=== PATIENT | female | born 1965 | race Caucasian/White ===

== ENCOUNTER 2017-03-30 19:30 | Emergency (ER) | payer OTHER ==
[2017-03-30 19:35] VITALS: BP 147/79; PULSE 98; RESP 16; TEMP 98.1; O2SAT 100
--- NOTE | 2017-03-30 19:59 | ED PDOC ---
Lower Extremity Pain/Injury Time Seen by Provider: 03/30/17 19:30 Chief Complaint (Nursing): Lower Extremity Problem/Injury Chief Complaint (Provider): Left foot pain History Per: Patient History/Exam Limitations: no limitations Onset/Duration Of Symptoms: Days (3) Current Symptoms Are (Timing): Still Present Severity: Moderate Additional History Per: Patient Additional Complaint(s): The pt is a 51yo female with no pertinent PMHx, presents to the ED for evaluation of left foot pain for the past 3 days. Pt reports she was walking and missed a step and believes it may be the cause of the pain. She denies any falls, trauma or head injury. Pt additionally reports the pain sometimes shoots up her left leg. She denies taking any medication for her pain. She offers no other medical complaints. - Ankle/Foot Description Of Injury: Other (missed step) Currently Unable To: Bear Weight Past Medical History Reviewed: Historical Data, Nursing Documentation, Vital Signs Vital Signs: Last Vital Signs Temp 98.1 F 03/30/17 19:33 Pulse 98 H 03/30/17 19:33 Resp 16 03/30/17 19:33 BP 147/79 03/30/17 19:33 Pulse Ox 100 03/30/17 19:33 - Medical History PMH: No Chronic Diseases - Surgical History Surgical History: No Surg Hx - Family History Family History: States: Unknown Family Hx - Living Arrangements Living Arrangements: With Family - Home Medications Home Medications: Ambulatory Orders Medication Instructions Recorded Naproxen [Naprosyn Tab] 1 tab PO Q8 PRN #21 tab 03/30/17 - Allergies Allergies/Adverse Reactions: Allergies Allergy/AdvReac Type Severity Reaction Status Date / Time No Known Allergies Allergy Verified 03/30/17 19:33 Review of Systems ROS Statement: Except As Marked, All Systems Reviewed And Found Negative Musculoskeletal: Positive for: Foot Pain (left) Physical Exam - Reviewed Nursing Documentation Reviewed: Yes Vital Signs Reviewed: Yes - Physical Exam Appears: Positive for: Well, Non-toxic, No Acute Distress Head Exam: Positive for: ATRAUMATIC, NORMAL INSPECTION, NORMOCEPHALIC Skin: Positive for: Normal Color Neck: Positive for: Normal Cardiovascular/Chest: Positive for: Regular Rate, Rhythm Respiratory: Negative for: Respiratory Distress Pulses-Dorsalis Pedis (L): 2+ Pulses-Dorsalis Pedis (R): 2+ Pulses-Post. Tibialis (L): 2+ Pulses-Post. Tibialis (R): 2+ Extremity: Positive for: Tenderness (posterior malleolar region b/l) Neurologic/Psych: Positive for: Alert, Oriented - ECG O2 Sat by Pulse Oximetry: 100 (RA) Pulse Ox Interpretation: Normal - Progress ED Course And Treament: XRY OF ANKLE: NO ACUTE FX PLACED IN AIR-CAST AND HAS CRUTCHES TORADOL 30MG IM Medical Decision Making Medical Decision Making: Time: 1951 Impression: Left foot pain Plan: -- XR Left foot -- Toradol 30 mg IM --Reassess Scribe Attestation: All records were documented by Suzanne Ramírez, acting as a Scribe for KRISTA Anders. Provider Scribe Attestation: All medical record entries made by the Scribe were at my direction and personally dictated by me. I have reviewed the chart and agree that the record accurately reflects my personal performance of the history, physical exam, medical decision making, and the department course for this patient. I have also personally directed, reviewed, and agree with the discharge instructions and disposition. Disposition - Clinical Impression Clinical Impression: Ankle injury - Patient ED Disposition Is Patient to be Admitted: No - Disposition Referrals: [facility] [Outside] [facility] [Outside] Disposition: Routine/Home Disposition Time: 21:11 Condition: FAIR Prescriptions: Naproxen [Naprosyn Tab] 1 tab PO Q8 PRN #21 tab PRN Reason: Pain, Moderate (4-7) Instructions: Ankle Sprain (ED)
--- NOTE | 2017-03-31 10:55 | RAD ---
PROCEDURE: Left Ankle Radiographs. HISTORY: injury ankle COMPARISON: None FINDINGS: BONES: No apparent fracture. JOINTS: Minimal degenerative changes. Ankle mortise maintained. Talar dome intact SOFT TISSUES: Normal. OTHER FINDINGS: None. IMPRESSION: No apparent fracture.
== END 2017-03-30 21:00 | disposition home or self-care (01) ==
LOC: H.ER 19:30
DX: S99.912A Unspecified injury of left ankle, initial encounter (principal)